=== PATIENT | female | born 1990 | race Caucasian/White ===

== ENCOUNTER 2017-06-26 07:42 | Emergency (ER) | payer OTHER ==
[~2017-06-26] VITALS: Ht 152.4 cm; Wt 81.8 kg
[~2017-06-26 07:42] MED LIST: no meds
[2017-06-26] MEDS ORDERED: LOPERAMIDE HCL 2 MG CAPSULE PO ONE (08:15)
[2017-06-26] MEDS ORDERED: SODIUM CHLORIDE 0.9% 1,000 ML IV ONE (08:15)
[2017-06-26] MEDS ORDERED: ONDANSETRON HCL 4 MG/2 ML VIAL IVP ONE (08:15)
[2017-06-26 08:48] LABS: BASOPHILS % (AUTO) 0.5 % (0.0-2.0); EOSINOPHILS % (AUTO) 1.3 % (1.0-6.0); HEMATOCRIT 44.8 % (36-46); HEMOGLOBIN 15.2 g/dL (12.0-16.0); LYMPHOCYTES # (AUTO) 1.6 K/uL (1.0-4.8); LYMPHOCYTES % (AUTO) 22.5 % (22.0-44.0); MEAN CORPUSCULAR HEMOGLOBIN 29.7 pg (26.0-34.0); MEAN CORPUSCULAR VOLUME 87 fL (80-100); MONOCYTES # (AUTO) 0.5 K/uL (0.1-1.0); MONOCYTES % (AUTO) 6.6 % (2.0-9.0); NEUTROPHILS # (AUTO) 4.9 K/uL (1.8-7.7); NEUTROPHILS % (AUTO) 69.1 % (40.0-70.0); PLATELET COUNT (AUTO) 250 K/uL (150-450); RED BLOOD CELL COUNT(AUTO) 5.13 MIL/uL (4.00-5.20); RED CELL DISTRIBUTION WIDTH 12.8 % (11.5-14.5)
[2017-06-26 08:54] LABS: ANION GAP 9 mmol/L (8-16); CALCIUM, TOTAL 9.3 mg/dL (8.8-10.5); CARBON DIOXIDE 28 mmol/L (22-29); CHLORIDE 103 mmol/L (98-107); CREATININE 0.53 mg/dL (0.60-1.30); GLOMERULAR FILTR. RATE CALC > 60 mL/min (>60); POTASSIUM 3.5 mmol/L (3.5-5.1); SODIUM SERUM 140 mmol/L (136-145); UREA NITROGEN, BLOOD 8 mg/dL (7-18)
[2017-06-26 08:59] LABS: ALANINE AMINOTRANSFERASE 148 U/L (12-78); ALBUMIN 3.9 g/dL (3.4-5.0); ASPARTATE AMINOTRANSFERASE 55 U/L (15-37); BILIRUBIN,TOTAL 0.4 mg/dL (0.1-1.0)
[2017-06-26] MEDS ORDERED: KETOROLAC TROMETHAMINE 30 MG/ML VIAL IVP ONE (09:15)
[2017-06-26 10:08] VITALS: BP 105/69
== END 2017-06-26 10:24 | disposition home or self-care (01) ==
LOC: EMS 07:46
DX: K52.9 Noninfective gastroenteritis and colitis, unspecified (principal); R00.2 Palpitations; R06.02 Shortness of breath
CPT/HCPCS: 36415; 71010; 80053; 83690; 84703; 85025; 93005; 96361; 96374; 96375; 99285; J1885; J2405; J7030

== ENCOUNTER 2017-08-28 12:05 | Emergency (ER) | payer OTHER ==
[~2017-08-28] VITALS: Ht 152.4 cm; Wt 86.4 kg
[2017-08-28] MEDS ORDERED: BUPIVACAINE HCL/PF 0.25% 10 ML VIAL INJ ONE (13:00)
[2017-08-28] MEDS ORDERED: POVIDONE-IODINE 10% 120 ML SOLUTION TP ONE (13:00)
[2017-08-28 13:55] VITALS: BP 118/80
== END 2017-08-28 14:04 | disposition home or self-care (01) ==
LOC: EMS 12:06
DX: S61.301A Unspecified open wound of left index finger with damage to nail, initial encounter (principal); X58.XXXA Exposure to other specified factors, initial encounter; Y93.89 Activity, other specified; Y92.89 Other specified places as the place of occurrence of the external cause; Y99.8 Other external cause status
CPT/HCPCS: 11730; 99283; J3490; 99284

== ENCOUNTER 2018-04-05 22:08 | Emergency (ER) | payer OTHER ==
[~2018-04-05] VITALS: Ht 172.7 cm; Wt 81.8 kg
[2018-04-06] MEDS ORDERED: SODIUM CHLORIDE 0.9% 1,000 ML IV ONE (00:45)
[2018-04-06] MEDS ORDERED: KETOROLAC TROMETHAMINE 30 MG/ML VIAL IVP ONE (01:00)
[2018-04-06] MEDS ORDERED: ONDANSETRON HCL 4 MG/2 ML VIAL IVP ONE (01:00)
[2018-04-06] MEDS ORDERED: VALPROATE SODIUM 500 MG in DEXTROSE 5%-WATER 50 ML IV ONE (01:00)
[2018-04-06] MEDS ORDERED: DEXAMETHASONE SOD PHOS 4 MG/ML 5 ML VIAL IVP ONE (01:00)
[2018-04-06] MEDS ORDERED: PROCHLORPERAZINE EDISYLATE 5 MG/ML 2 ML VIAL IVP ONE (01:00)
[2018-04-06 01:48] LABS: BASOPHILS % (AUTO) 0.7 % (0.0-2.0); EOSINOPHILS % (AUTO) 1.6 % (1.0-6.0); HEMATOCRIT 39.7 % (36-46); LYMPHOCYTES # (AUTO) 2.3 K/uL (1.0-4.8); LYMPHOCYTES % (AUTO) 30.2 % (22.0-44.0); MEAN CORPUSCULAR HEMOGLOBIN 30.2 pg (26.0-34.0); MEAN CORPUSCULAR HGB CONC 35.3 G/dL (31.0-37.0); MEAN CORPUSCULAR VOLUME 86 fL (80-100); MONOCYTES # (AUTO) 0.6 K/uL (0.1-1.0); NEUTROPHILS # (AUTO) 4.6 K/uL (1.8-7.7); NEUTROPHILS % (AUTO) 59.5 % (40.0-70.0); PLATELET COUNT (AUTO) 205 K/uL (150-450); RED BLOOD CELL COUNT(AUTO) 4.64 MIL/uL (4.00-5.20); RED CELL DISTRIBUTION WIDTH 12.6 % (11.5-14.5)
[2018-04-06 01:54] LABS: ANION GAP 6 mmol/L (8-16); CALCIUM, TOTAL 8.7 mg/dL (8.8-10.5); CARBON DIOXIDE 27 mmol/L (22-29); CHLORIDE 105 mmol/L (98-107); CREATININE 0.56 mg/dL (0.60-1.30); GLOMERULAR FILTR. RATE CALC > 60 mL/min (>60); GLUCOSE,RANDOM 103 mg/dL (70-110); POTASSIUM 3.8 mmol/L (3.5-5.1); SODIUM SERUM 138 mmol/L (136-145); UREA NITROGEN, BLOOD 12 mg/dL (7-18)
[2018-04-06 01:59] LABS: ALANINE AMINOTRANSFERASE 82 U/L (12-78); ALBUMIN 3.5 g/dL (3.4-5.0); ALKALINE PHOSPHATASE 83 U/L (46-116); ASPARTATE AMINOTRANSFERASE 31 U/L (15-37); BILIRUBIN,TOTAL 0.3 mg/dL (0.1-1.0); TOTAL PROTEIN, SERUM 7.3 g/dL (6.4-8.2)
[2018-04-06 02:51] VITALS: BP 99/74
== END 2018-04-06 03:02 | disposition home or self-care (01) ==
LOC: EMS 22:11
DX: R51 Headache (principal); R11.0 Nausea
CPT/HCPCS: 36415; 80053; 84703; 85025; 96365; 96366; 96375; 99285; J0780; J1100; J1885; J2405; J3490; J7030; J7060

== ENCOUNTER 2019-02-08 04:34 | Emergency (ER) | payer OTHER ==
[~2019-02-08] VITALS: Ht 152.4 cm; Wt 91.4 kg
[2019-02-08] MEDS ORDERED: IBUP100O27 PO (04:45)
[2019-02-08] MEDS ORDERED: AMIT10TA6 PO (04:45)
[2019-02-08] MEDS ORDERED: ALBUTEROL SULFATE 2.5 MG/0.5 ML NEB SOLUTION NEB ONE (05:00)
[2019-02-08 05:36] LABS: BASOPHILS % (AUTO) 0.6 % (0.0-2.0); EOSINOPHILS % (AUTO) 1.1 % (1.0-6.0); HEMATOCRIT 40.9 % (36-46); HEMOGLOBIN 13.6 g/dL (12.0-16.0); LYMPHOCYTES # (AUTO) 1.8 K/uL (1.0-4.8); LYMPHOCYTES % (AUTO) 22.9 % (22.0-44.0); MEAN CORPUSCULAR HEMOGLOBIN 29.2 pg (26.0-34.0); MEAN CORPUSCULAR HGB CONC 33.3 G/dL (31.0-37.0); MEAN CORPUSCULAR VOLUME 88 fL (80-100); MONOCYTES # (AUTO) 0.6 K/uL (0.1-1.0); MONOCYTES % (AUTO) 7.7 % (2.0-9.0); NEUTROPHILS # (AUTO) 5.4 K/uL (1.8-7.7); NEUTROPHILS % (AUTO) 67.7 % (40.0-70.0); PLATELET COUNT (AUTO) 240 K/uL (150-450); RED BLOOD CELL COUNT(AUTO) 4.66 MIL/uL (4.00-5.20); RED CELL DISTRIBUTION WIDTH 12.9 % (11.5-14.5)
[2019-02-08 05:46] LABS: ANION GAP 12 mmol/L (8-16); CALCIUM, TOTAL 9.1 mg/dL (8.8-10.5); CARBON DIOXIDE 26 mmol/L (22-29); CHLORIDE 104 mmol/L (98-107); CREATININE 0.64 mg/dL (0.60-1.30); GLOMERULAR FILTR. RATE CALC > 60 mL/min (>60); GLUCOSE,RANDOM 105 mg/dL (70-110); POTASSIUM 3.2 mmol/L (3.5-5.1); SODIUM SERUM 142 mmol/L (136-145); UREA NITROGEN, BLOOD 12 mg/dL (7-18)
[2019-02-08 05:58] LABS: ALANINE AMINOTRANSFERASE 106 U/L (12-78); ALBUMIN 3.5 g/dL (3.4-5.0); ALKALINE PHOSPHATASE 83 U/L (46-116); ASPARTATE AMINOTRANSFERASE 41 U/L (15-37); BILIRUBIN,TOTAL 0.2 mg/dL (0.1-1.0); HCG,QUANTITATIVE < 1 mIU/mL (0-6); TOTAL PROTEIN, SERUM 6.9 g/dL (6.4-8.2)
[2019-02-08] MEDS ORDERED: 0.9% SODIUM CHLORIDE 5 ML NEB SOLUTION NEB ONE (05:58)
[2019-02-08] MEDS ORDERED: POTASSIUM CHLORIDE 20 MEQ ER TABLET PO ONE (06:00)
[2019-02-08 07:11] VITALS: BP 112/73
== END 2019-02-08 07:30 | disposition home or self-care (01) ==
LOC: EMS 04:35
DX: J45.909 Unspecified asthma, uncomplicated (principal); K21.9 Gastro-esophageal reflux disease without esophagitis; F12.90 Cannabis use, unspecified, uncomplicated; Z91.040 Latex allergy status
CPT/HCPCS: 93005; 94640

== ENCOUNTER 2019-09-29 19:10 | Emergency (ER) | payer OTHER ==
[~2019-09-29] VITALS: Ht 152.4 cm; Wt 90.9 kg
[~2019-09-29 19:10] MED LIST changes: +AMIT10TA6 PO; +IBUP100O27 PO; -no meds
[2019-09-29] MEDS ORDERED: SERT100T12 PO (19:30)
[2019-09-29 20:09] LABS: APPEARANCE,URINE CLOUDY (CLEAR); BILIRUBIN,URINE NEGATIVE (NEGATIVE); GLUCOSE, URINE (UA) NEGATIVE (NEGATIVE); KETONES,URINE NEGATIVE (NEGATIVE); LEUKOCYTE ESTERASE ,URINE NEGATIVE (NEGATIVE); NITRATE,URINE NEGATIVE (NEGATIVE); OCCULT BLOOD,URINE NEGATIVE (NEGATIVE); PH,URINE 5.5 (5.0-8.0); PROTEIN,URINE NEGATIVE (NEGATIVE); UROBILINOGEN,URINE 0.2 mg/dL (<=1.0)
[2019-09-29] MEDS ORDERED: DEXAMETHASONE 4 MG TABLET PO ONE (20:45)
[2019-09-29] MEDS ORDERED: ACETAMINOPHEN 500 MG TABLET PO ONE (20:45)
[2019-09-29 21:30] VITALS: BP 131/78
== END 2019-09-29 21:46 | disposition home or self-care (01) ==
LOC: EMS 19:12
DX: M54.5 Low back pain (principal); J45.909 Unspecified asthma, uncomplicated; K21.9 Gastro-esophageal reflux disease without esophagitis; F12.90 Cannabis use, unspecified, uncomplicated; Z79.899 Other long term (current) drug therapy; Z98.890 Other specified postprocedural states; Z91.040 Latex allergy status
CPT/HCPCS: 72100; 81003; 99284; J8540

== ENCOUNTER 2019-12-06 17:27 | Emergency (ER) | payer OTHER ==
[~2019-12-06] VITALS: Ht 152.4 cm; Wt 84.5 kg
[~2019-12-06 17:27] MED LIST changes: +SERT100T12 PO
[2019-12-06] MEDS ORDERED: ALBU8HFA IH (17:39)
[2019-12-06] MEDS ORDERED: ALBUTEROL SULFATE 2.5 MG/0.5 ML NEB SOLUTION NEB ONE (18:30)
[2019-12-06] MEDS ORDERED: IPRATROPIUM BROMIDE 0.5 MG/2.5 ML NEB SOLUTION NEB ONE (18:30)
[2019-12-06] MEDS ORDERED: ACETAMINOPHEN 500 MG TABLET PO ONE (19:30)
[2019-12-06 19:55] LABS: BASOPHILS % (AUTO) 0.6 % (0.0-2.0); EOSINOPHILS % (AUTO) 0.9 % (1.0-6.0); HEMATOCRIT 41.8 % (36-46); HEMOGLOBIN 14.6 g/dL (12.0-16.0); LYMPHOCYTES # (AUTO) 1.9 K/uL (1.0-4.8); LYMPHOCYTES % (AUTO) 17.7 % (22.0-44.0); MEAN CORPUSCULAR HEMOGLOBIN 30.6 pg (26.0-34.0); MEAN CORPUSCULAR VOLUME 87 fL (80-100); MONOCYTES % (AUTO) 9.4 % (2.0-9.0); NEUTROPHILS # (AUTO) 7.5 K/uL (1.8-7.7); NEUTROPHILS % (AUTO) 71.4 % (40.0-70.0); PLATELET COUNT (AUTO) 208 K/uL (150-450); RED BLOOD CELL COUNT(AUTO) 4.78 MIL/uL (4.00-5.20)
[2019-12-06 19:56] LABS: ANION GAP 7 mmol/L (8-16); CALCIUM, TOTAL 9.4 mg/dL (8.8-10.5); CARBON DIOXIDE 27 mmol/L (22-29); CHLORIDE 103 mmol/L (98-107); CREATININE 0.61 mg/dL (0.60-1.30); GLOMERULAR FILTR. RATE CALC > 60 mL/min (>60); GLUCOSE,RANDOM 94 mg/dL (70-110); POTASSIUM 3.7 mmol/L (3.5-5.1); SODIUM SERUM 137 mmol/L (136-145); UREA NITROGEN, BLOOD 8 mg/dL (7-18)
[2019-12-06 20:02] LABS: APPEARANCE,URINE CLEAR (CLEAR); BILIRUBIN,URINE NEGATIVE (NEGATIVE); GLUCOSE, URINE (UA) NEGATIVE (NEGATIVE); KETONES,URINE NEGATIVE (NEGATIVE); LEUKOCYTE ESTERASE ,URINE NEGATIVE (NEGATIVE); NITRATE,URINE NEGATIVE (NEGATIVE); OCCULT BLOOD,URINE NEGATIVE (NEGATIVE); PROTEIN,URINE NEGATIVE (NEGATIVE)
[2019-12-06 20:11] LABS: ALANINE AMINOTRANSFERASE 96 U/L (12-78); ALBUMIN 3.6 g/dL (3.4-5.0); ALKALINE PHOSPHATASE 88 U/L (46-116); ASPARTATE AMINOTRANSFERASE 35 U/L (15-37); BILIRUBIN,TOTAL 0.4 mg/dL (0.1-1.0); HCG,QUANTITATIVE < 1 mIU/mL (0-6); TOTAL PROTEIN, SERUM 7.6 g/dL (6.4-8.2)
[2019-12-06 20:35] VITALS: BP 105/64
== END 2019-12-06 20:44 | disposition home or self-care (01) ==
LOC: EMS 17:27
DX: J45.909 Unspecified asthma, uncomplicated (principal); K21.9 Gastro-esophageal reflux disease without esophagitis; F12.90 Cannabis use, unspecified, uncomplicated; Z91.040 Latex allergy status; Z79.899 Other long term (current) drug therapy
CPT/HCPCS: 94640

== ENCOUNTER 2020-02-14 00:50 | Emergency (ER) | payer MEDICAID, OTHER ==
[~2020-02-14] VITALS: Ht 154.9 cm; Wt 81.8 kg
[~2020-02-14 00:50] MED LIST changes: +ALBU8HFA IH; -AMIT10TA6 PO; -IBUP100O27 PO
[2020-02-14 02:20] LABS: BASOPHILS % (AUTO) 0.7 % (0.0-2.0); HEMATOCRIT 48.7 % (36-46); LYMPHOCYTES # (AUTO) 1.8 K/uL (1.0-4.8); LYMPHOCYTES % (AUTO) 26.1 % (22.0-44.0); MEAN CORPUSCULAR HEMOGLOBIN 28.2 pg (26.0-34.0); MEAN CORPUSCULAR HGB CONC 32.9 G/dL (31.0-37.0); MEAN CORPUSCULAR VOLUME 86 fL (80-100); MONOCYTES # (AUTO) 0.5 K/uL (0.1-1.0); NEUTROPHILS # (AUTO) 4.5 K/uL (1.8-7.7); NEUTROPHILS % (AUTO) 64.2 % (40.0-70.0); PLATELET COUNT (AUTO) 243 K/uL (150-450); RED BLOOD CELL COUNT(AUTO) 5.66 MIL/uL (4.00-5.20)
[2020-02-14] MEDS ORDERED: SODIUM CHLORIDE 0.9% 1,000 ML IV ONE (02:45)
[2020-02-14 02:46] LABS: ANION GAP 9 mmol/L (8-16); CALCIUM, TOTAL 9.2 mg/dL (8.8-10.5); CARBON DIOXIDE 29 mmol/L (22-29); CHLORIDE 101 mmol/L (98-107); GLOMERULAR FILTR. RATE CALC 59 mL/min (>60); GLUCOSE,RANDOM 100 mg/dL (70-110); POTASSIUM 3.9 mmol/L (3.5-5.1); SODIUM SERUM 139 mmol/L (136-145); UREA NITROGEN, BLOOD 11 mg/dL (7-18)
[2020-02-14 02:56] LABS: ALANINE AMINOTRANSFERASE 28 U/L (12-78); ALBUMIN 4.6 g/dL (3.4-5.0); ALKALINE PHOSPHATASE 56 U/L (46-116); ASPARTATE AMINOTRANSFERASE 12 U/L (15-37); BILIRUBIN,TOTAL 0.6 mg/dL (0.1-1.0); HCG,QUANTITATIVE < 1 mIU/mL (0-6); TOTAL PROTEIN, SERUM 8.1 g/dL (6.4-8.2)
[2020-02-14] MEDS ORDERED: KETOROLAC TROMETHAMINE 30 MG/ML VIAL IVP ONE (03:00)
[2020-02-14] MEDS ORDERED: ONDANSETRON HCL 4 MG/2 ML VIAL IVP ONE (03:00)
[2020-02-14] MEDS ORDERED: ACETAMINOPHEN 500 MG TABLET PO ONE (03:00)
[2020-02-14 06:21] VITALS: BP 142/94
[2020-02-14 09:34] LABS: C.DIFF GDH ANTIGEN, Stool Negative (Negative); C.DIFF TOXINS A&B, Stool Negative (Negative)
== END 2020-02-14 07:44 | disposition home or self-care (01) ==
LOC: EMS 00:50
DX: R11.2 Nausea with vomiting, unspecified (principal); R19.7 Diarrhea, unspecified; R10.33 Periumbilical pain; J45.909 Unspecified asthma, uncomplicated; K21.9 Gastro-esophageal reflux disease without esophagitis; F12.90 Cannabis use, unspecified, uncomplicated
CPT/HCPCS: 36415; 80053; 83735; 84702; 85025; 87324; 87449; 96361; 96374; 96375; 99284; J1885; J2405; J7030

== ENCOUNTER 2021-06-27 07:48 | Emergency (ER) | payer MEDICAID, OTHER ==
[~2021-06-27] VITALS: Ht 154.9 cm; Wt 65.5 kg
[~2021-06-27 07:48] MED LIST changes: +SERT-162 PO; -SERT100T12 PO
[2021-06-27] MEDS ORDERED: ACET-2247 PO (07:55)
[2021-06-27] MEDS ORDERED: GuaiFENesin/D-METHORPHAN [SUGAR-FREE] 200-20MG/10 ML SYRUP UDCUP PO ONE (08:15)
[2021-06-27] MEDS ORDERED: ACETAMINOPHEN 500 MG TABLET PO ONE (08:15)
[2021-06-27] MEDS ORDERED: IBUPROFEN 600 MG TABLET PO ONE (08:15)
[2021-06-27 08:35] LABS: COVID AG,FIA SOURCE NASOPHARYNGEAL
[2021-06-27] MEDS ORDERED: ONDANSETRON HCL 4 MG TABLET PO ONE (09:15)
[2021-06-27 09:28] VITALS: BP 115/76
== END 2021-06-27 09:32 | disposition home or self-care (01) ==
LOC: EMS 08:14
DX: J02.9 Acute pharyngitis, unspecified (principal); Z20.822 Contact with and (suspected) exposure to COVID-19
CPT/HCPCS: 87426; 93005; 99284; Q0162; U0003

== ENCOUNTER 2021-07-15 12:46 | Emergency (ER) | payer OTHER ==
[~2021-07-15] VITALS: Ht 154.9 cm; Wt 90.9 kg
[~2021-07-15 12:46] MED LIST changes: +ACET-2247 PO; -ALBU8HFA IH
[2021-07-15] MEDS ORDERED: TraMADol HCL 50 MG TABLET PO ONE (13:45)
[2021-07-15 14:29] VITALS: BP 132/68
== END 2021-07-15 15:27 | disposition home or self-care (01) ==
LOC: EMS 12:47
DX: S83.91XA Sprain of unspecified site of right knee, initial encounter (principal); F12.90 Cannabis use, unspecified, uncomplicated; Z91.040 Latex allergy status; X50.1XXA Overexertion from prolonged static or awkward postures, initial encounter; Y93.89 Activity, other specified; Y92.89 Other specified places as the place of occurrence of the external cause; Y99.8 Other external cause status
CPT/HCPCS: 29505; 99284; 73562-TC; 73590-TC; Z7502; Z7610

== ENCOUNTER 2022-06-14 21:52 | Emergency (ER) | payer OTHER ==
[~2022-06-14] VITALS: Ht 152.4 cm; Wt 90.0 kg
[2022-06-14] MEDS ORDERED: IBUP-2070 PO (22:09)
[2022-06-14] MEDS ORDERED: IBUPROFEN 800 MG TABLET PO ONE (22:30)
[2022-06-14 22:58] VITALS: BP 130/60
== END 2022-06-14 22:58 | disposition home or self-care (01) ==
LOC: EMS 22:00
DX: S67.195A Crushing injury of left ring finger, initial encounter (principal); K58.9 Irritable bowel syndrome, unspecified; Z98.890 Other specified postprocedural states; W23.0XXA Caught, crushed, jammed, or pinched between moving objects, initial encounter; Y93.89 Activity, other specified; Y92.810 Car as the place of occurrence of the external cause; Y99.8 Other external cause status
CPT/HCPCS: 99283

== ENCOUNTER 2023-02-03 16:15 | Emergency (ER) | payer OTHER ==
[~2023-02-03] VITALS: Ht 152.4 cm; Wt 94.1 kg
[~2023-02-03 16:15] MED LIST changes: +IBUP-1492 PO; -SERT-162 PO
[2023-02-03 16:35] LABS: COVID AG,FIA SOURCE NASAL SWAB
[2023-02-03 17:08] LABS: INFLUENZA TYPE A NEGATIVE FOR TYPE A (NEGATIVE); INFLUENZA TYPE B NEGATIVE FOR TYPE B (NEGATIVE); RAPID GROUP A STREP NEGATIVE (NEGATIVE)
[2023-02-03] MEDS ORDERED: AMOX1TAB16 PO (18:39)
[2023-02-03] MEDS ORDERED: IBUP-1492 PO (18:40)
[2023-02-03 18:55] VITALS: BP 113/78
== END 2023-02-03 19:02 | disposition home or self-care (01) ==
LOC: EMS 16:16
DX: H66.91 Otitis media, unspecified, right ear (principal); J02.9 Acute pharyngitis, unspecified; F12.90 Cannabis use, unspecified, uncomplicated; Z98.890 Other specified postprocedural states; Z20.822 Contact with and (suspected) exposure to COVID-19; Z91.040 Latex allergy status
CPT/HCPCS: 87430; 87804; 99283

== ENCOUNTER 2025-01-02 10:24 | Emergency (ER) | payer OTHER ==
[~2025-01-02] VITALS: Ht 149.9 cm; Wt 73.6 kg
[~2025-01-02 10:24] MED LIST changes: +AMOX-457 PO
[2025-01-02 10:34] VITALS: BP 114/66; PULSE 76; RESP 18; TEMP 98.3; O2SAT 97
[2025-01-02] MEDS ORDERED: ACYC-138 PO (11:25)
== END 2025-01-02 11:34 | disposition home or self-care (01) ==
LOC: EMS 10:26
DX: A60.09 Herpesviral infection of other urogenital tract (principal); F12.90 Cannabis use, unspecified, uncomplicated; F17.290 Nicotine dependence, other tobacco product, uncomplicated; Z79.624 Long term (current) use of inhibitors of nucleotide synthesis
CPT/HCPCS: 99283; Z7502

== ENCOUNTER 2025-02-09 15:24 | Emergency (ER) | payer OTHER ==
[~2025-02-09] VITALS: Ht 152.4 cm; Wt 70.5 kg
[~2025-02-09 15:24] MED LIST changes: +[UNRECOGNIZED DRUG - CODE] PO
[2025-02-09 15:32] VITALS: TEMP 98.5
[2025-02-09 15:57] VITALS: BP 104/66
[2025-02-09 16:09] VITALS: PULSE 92; RESP 20; O2SAT 100; O2SAT 99
[2025-02-09] MEDS: IPRATROPIUM BROMIDE 0.5 MG/2.5 ML NEB SOLUTION NEB ONE (16:09)
[2025-02-09] MEDS: ALBUTEROL SULFATE 2.5 MG/0.5 ML NEB SOLUTION NEB ONE (16:09)
[2025-02-09] MEDS: ALBUTEROL SULFATE HFA 90 MCG/PUFF 8 GM INHALER IH ONE (16:09)
[2025-02-09 16:24] VITALS: PULSE 96; RESP 20; O2SAT 100
[2025-02-09 16:25] VITALS: PULSE 104; RESP 20; O2SAT 95
== END 2025-02-09 16:45 | disposition home or self-care (01) ==
LOC: EMS 15:24
DX: J45.909 Unspecified asthma, uncomplicated (principal); F12.90 Cannabis use, unspecified, uncomplicated; F17.290 Nicotine dependence, other tobacco product, uncomplicated; Z79.624 Long term (current) use of inhibitors of nucleotide synthesis; Z91.040 Latex allergy status
CPT/HCPCS: 99283; 94640; J3535